=== PATIENT | male | born 1985 | race Caucasian/White ===

== ENCOUNTER 2023-10-27 08:52 | Emergency (ER) | payer OTHER ==
[2023-10-27 09:04] VITALS: RESP 18
[2023-10-27] MEDS: KETOROLAC 15 MG/ML 1 ML VIAL IM STA (09:35)
[2023-10-27] MEDS: MORPHINE SULFATE 4 MG/ML SYRINGE IM STA (09:36)
[2023-10-27] MEDS: ONDANSETRON ODT 4 MG TAB PO STA (09:37)
--- NOTE | 2023-10-27 10:19 | ED ---
Upper Extremity HPI - General Chief Complaint: Extremity Injury, Upper Stated Complaint: fall Time Seen by Provider: 10/27/23 09:06 Source: patient, RN notes reviewed Mode of arrival: ambulatory Limitations: no limitations - History of Present Illness Initial Comments: This is a 38-year-old male who presents to the emergency department for a left elbow injury. States that he tripped yesterday and fell onto a shovel. He has since had increasing pain to the left elbow and is unable to move his arm. He took Aleve without relief in symptoms. Denies hitting his head or sustaining any other injuries. MD Complaint: Injury to:: left, elbow - Related Data Previous Rx's Medication Instructions Recorded HYDROcodone/APAP 7.5-325MG [[place] 1 tab PO Q6HR PRN 3 Days #12 tab 10/27/23 7.5-325] Ibuprofen [Motrin] 800 mg PO Q8H PRN #30 tab 10/27/23 Ondansetron Odt [Zofran Odt] 4 mg PO Q8HR PRN #20 tab 10/27/23 Allergies Allergy/AdvReac Type Severity Reaction Status Date / Time No Known Allergies Allergy Verified 10/27/23 09:03 Review of Systems ROS Statement: Those systems with pertinent positive or pertinent negative responses have been documented in the HPI. ROS Other: All systems not noted in ROS Statement are negative. Past Medical History Past Medical History: No Reported History History of Any Multi-Drug Resistant Organisms: None Reported Past Surgical History: No Surgical Hx Reported Past Psychological History: No Psychological Hx Reported Smoking Status: Current every day smoker Past Alcohol Use History: Heavy Past Drug Use History: None Reported General Exam Limitations: no limitations General appearance: alert, in no apparent distress Head exam: Present: atraumatic, normocephalic, normal inspection Respiratory exam: Present: normal lung sounds bilaterally. Absent: respiratory distress, wheezes, rales, rhonchi, stridor Cardiovascular Exam: Present: regular rate, normal rhythm, normal heart sounds. Absent: systolic murmur, diastolic murmur, rubs, gallop, clicks Extremities exam: Present: other (Swelling and tenderness over the left elbow. Range of motion of the left upper extremity limited by pain. 2+ radial pulses.) Neurological exam: Present: alert, oriented X3, CN II-XII intact Psychiatric exam: Present: normal affect, normal mood Skin exam: Present: warm, dry, intact, normal color. Absent: rash Course Vital Signs 10/27/23 10/27/23 09:01 11:26 Temperature 98 F 97.9 F Pulse Rate 98 86 Respiratory 18 18 Rate Blood Pressure 121/80 116/78 O2 Sat by Pulse 98 99 Oximetry Medical Decision Making - Medical Decision Making This is a 38 year old male who presents to the emergency department for a left elbow injury. Was pt. sent in by a medical professional or institution? @ -No Did you speak to anyone other than the patient for history? @ -No Did you review nursing and triage notes? @ -Yes, and I agree, it is accurate with regards to the patient's symptoms. Were old charts reviewed? @ -No Differential Diagnosis? @ -Differential Musculoskeletal: Muscular strain, contusion, ligament sprain, fracture, arthritis, septic arthritis, bursitis, cellulitis, muscle spasm, nerve compression, DVT, arterial occlusion, herpes zoster, electrolyte abnormality, tumor.... This is not meant to be in all inclusive list EKG interpreted by me (3pts min.)? @ -Not obtained X-rays interpreted by me (1pt min.)? @ -X-ray of the left elbow obtained. My interpretation identifies a displaced elbow fracture. CT interpreted by me (1pt min.)? @ -Not obtained U/S interpreted by me (1pt. min.)? @ -Not obtained What testing was considered but not performed? (CT, X-rays, U/S, labs)? Why? @ -None What meds were considered but not given? Why? @ -None Did you discuss the management of the patient with other professionals? @ -No Did you reconcile home meds? @ -No Was smoking cessation discussed for >3mins.? @ -No Was critical care preformed (if so, how long)? @ -No Were there social determinants of health that impacted care today? How? (Homelessness, low income, unemployed, alcoholism, drug addiction, transportation, low edu. Level, literacy, decrease access to med. care, senior care, rehab)? @ -No Was there de-escalation of care discussed even if they declined? (Discuss DNR or withdrawal of care, Hospice)? @ -No What co-morbidities impacted this encounter? (DM, HTN, Smoking, COPD, CAD, Cancer, CVA, Hep., AIDS, mental health diagnosis, sleep apnea, morbid obesity)? @ -None Was patient admitted / discharged? @ -Discharged. X-ray of the left elbow demonstrates a 2.1 cm bone fragment posteriorly, likely a fractured spur. Pain was managed in the emergency department and the patient was put in an arm sling. Case management made the patient an appointment with orthopedics for tomorrow. Prescription for ibuprofen and [place] provided with dosing instructions reviewed. He was also given a prescription for Zofran for nausea associated with the use of the pain medication. Undiagnosed new problem with uncertain prognosis? @ -None Drug Therapy requiring intensive monitoring for toxicity (Heparin, Nitro, Insulin, Cardizem)? @ -None Were any procedures done? @ -None Diagnosis/symptom? @ -Fall, left elbow fracture Acute, or Chronic, or Acute on Chronic? @ -Acute Uncomplicated (without systemic symptoms) or Complicated (systemic symptoms)? @ -Uncomplicated Side effects of treatment? @ -None Exacerbation, Progression, or Severe Exacerbation] @ -Not applicable Poses a threat to life or bodily function? @ -This will limit his use of the left arm for the mean time. Return precautions reviewed in depth, the patient is instructed to return to the emergency department with any new, worsening, or concerning symptoms. Patient verbalized understanding. This case was discussed in detail with the attending ED physician, Dr. Balderas. Presentation, findings, and treatment plan discussed in detail as well. - Radiology Data Radiology results: report reviewed, image reviewed Disposition Clinical Impression: Elbow fracture, left, Fall Disposition: HOME SELF-CARE Instructions (If sedation given, give patient instructions): Elbow Fracture (ED) Additional Instructions: Return to the emergency department with any new, worsening, or concerning symptoms. Alternate with ibuprofen and Tylenol as needed for pain relief. Take the [place] sparingly when your pain is the most severe and be aware that it may make you drowsy. You can take the Zofran up to every 8 hours as needed for nausea and vomiting. You have an appointment with [facility] tomorrow morning at 8:45am. Prescriptions: Ibuprofen [Motrin] 800 mg PO Q8H PRN #30 tab PRN Reason: Pain HYDROcodone/APAP 7.5-325MG [[place] 7.5-325] 1 tab PO Q6HR PRN 3 Days #12 tab PRN Reason: Pain Ondansetron Odt [Zofran Odt] 4 mg PO Q8HR PRN #20 tab PRN Reason: Nausea And Vomiting Is patient prescribed a controlled substance at d/c from ED?: Yes When asked, does pt state using other controlled substances?: No If prescribed controlled substance>3 days was MAPS reviewed?: Prescribed <3 Days Referrals: None,Stated [Primary Care Provider] - 1-2 days [facility] [NON-STAFF] - (Contact to become established with PCP. ) Mitchell Guzman MD [STAFF PHYSICIAN] - 10/28/23 8:45 am (Please bring ID card and payment method. You will have new patient paperwork to complete. ) Time of Disposition: 11:09
--- NOTE | 2023-10-27 10:28 | XR ---
EXAMINATION TYPE: XR elbow complete LT DATE OF EXAM: 10/27/2023 COMPARISON: NONE HISTORY: 38-year-old male pain from fall, injury TECHNIQUE: 3 views FINDINGS: There is prominent medial and posterior soft tissue swelling. No elbow joint effusion. 2.1 x 0.9 cm bone fragment along the posterior aspect of the elbow probably a fractured olecranon spur. T he bone fragment appears slightly corticated however. No other acute fracture, subluxation, dislocati on. Mild spurring in both medial and lateral epicondyles. IMPRESSION: 1. A 2.1 x 0.9 cm bone fragment posteriorly, likely a fractured spur displaced by 1.2 cm. However, we suspect a more subacute to chronically fractured spur given corticated appearance. Further clinical correlation recommended. 2. Prominent medial and posterior soft tissue swelling. No additional acute osseous abnormality seen. 3. Spurring medially and laterally may be seen in the setting of common extensor origin and common fl exor origin tendinopathy.
[2023-10-27] MEDS: HYDROmorphone 1 MG/ML 1 ML SYRINGE IM STA (10:47)
[2023-10-27 11:29] VITALS: BP 116/78; PULSE 86; TEMP 97.9
== END 2023-10-27 12:35 | disposition home or self-care (01) ==
LOC: EC 08:52
DX: S42.402A Unspecified fracture of lower end of left humerus, initial encounter for closed fracture (principal); F17.200 Nicotine dependence, unspecified, uncomplicated; W01.198A Fall on same level from slipping, tripping and stumbling with subsequent striking against other object, initial encounter
CPT/HCPCS: 73080; 99284; 96372 ×3; J2270; J1170; J1885